=== PATIENT | female | born 1940 | race African-American/Black ===

== ENCOUNTER 2016-09-18 04:21 | Emergency (ER) | payer OTHER ==
--- NOTE | 2016-09-18 04:36 | PDOC ---
History of Present Illness - General Chief Complaint: Pain Stated Complaint: "I CANT BREATH AND MY BACK HURTS" Time Seen by Provider: 09/18/16 04:35 History Source: Patient Exam Limitations: No Limitations - History of Present Illness Initial Comments: 09/18/16 04:43 This is a 76-year-old female who comes in saying she is having difficulty breathing. Patient is a relatively poor historian however patient is noted to have 100% oxygen saturation with normal vitals here in the emergency room. Patient was comfortably resting on the stretcher lying down flat when I went into see her. She was unable to say why she felt short of breath but she just felt short of breath. She denied any palpitations or chest pain or nausea or any other associated symptoms. When I noted that she was here approximately one year ago for similar symptoms secondary to multiple deaths in her family she immediately started crying and admitted the she was feeling stressed about that as well. Patient said that her back pain is mild and chronic she did not want anything for her back pain she says it is constant and takes Tylenol for it at home which she has. Otherwise she denied any recent illnesses, cough, congestion , nausea, vomiting, diarrhea, rashes. PAST MEDICAL HISTORY: no significant history PAST SURGICAL HISTORY: no significant history FAMILY HISTORY: no pertinant history SOCIAL HISTORY: Pt lives with family and is employed. MEDICATIONS: reviewed ALLERGIES: As per nursing notes Review of Systems General: No fevers or chills, no weakness, no weight loss HEENT: No change in vision. No sore throat,. No ear pain CardioVascular: No chest pain or shortness of breath Respiratory:No cough, or wheezing. Gastrointestinal: no nausea, vomitting, diarrhea or constipation, No rectal bleeding Genitourinary: No dysuria, hematuria, or frequency Musculoskeletal: No joint or muscle pain or swelling Neurologic: No headache, vertigo, dizziness or loss of consciousness Psychiatric: nor depression Skin: No rashes or easy bruising Endocrine: no increased thirst or abnormal weight change Allergic: no skin or latex allergy All other systems reviewed and normal Exam: General: Well-nourished well-developed individual, no acute distress HEENT: Throat: Normal, tonsils normal, no erythema or exudate Neck: Supple, no meningeal signs, no lymphadenopathy Eyes::Pupils equal reactive and round, extraocular motion intact Chest: Nontender to palpation Cardiac: S1-S2 normal, regular rate and rhythm, no murmurs rubs or gallops Respiratory: Lungs clear to auscultation bilateral Abdomen: Soft, nondistended, normal bowel sounds, nontender to palpation diffusely Extremities: Warm, dry, no cyanosis, clubbing, or edema Skin: No rashes Neuro: Alert and oriented x3, nonfocal exam, grossly intact, normal gait Psych: Normal mood and affect 09/18/16 04:46 Assessment and plan: This is a 76-year-old female who comes in very anxious and stressed the anniversary of several deaths in her family. Patient stated that she felt her respiratory rate was 50 O2 sat was 98% and her cardiac and lung exam were completely normal. Patient was able to lay flat comfortably with any shortness of breath. He didn't completely lose that she has been this is chronic ongoing times many years and is worse than usual she takes Tylenol for which is helpful. Reassured patient that was that we needed to do her blood pressure was elevated but most likely stress her situation and that she should call her doctor in the morning and follow-up with her doctor. Patient discharged home with her son Past History - Past Medical History Allergies/Adverse Reactions: Allergies Allergy/AdvReac Type Severity Reaction Status Date / Time No Known Allergies Allergy Verified 07/31/15 08:49 Home Medications: Ambulatory Orders NK [No Known Home Medication] 07/31/15 Anemia: No Asthma: No Cancer: No Cardiac Disorders: No CVA: No COPD: No CHF: No Dementia: No Diabetes: No GI Disorders: No Disorders: No HTN: No Hypercholesterolemia: No Liver Disease: No Seizures: No Thyroid Disease: No - Surgical History Abdominal Surgery: No Appendectomy: No Cardiac Surgery: No Cholecystectomy: No Lung Surgery: No Neurologic Surgery: No Orthopedic Surgery: No - Immunization History Td Vaccination: Yes Immunization Up to Date: (UNSURE) - Psycho/Social/Smoking Cessation Hx Anxiety: No Suicidal Ideation: No Smoking Status: No Smoking History: Never smoked Have you smoked in the past 12 months: No Number of Cigarettes Smoked Daily: 0 Information on smoking cessation initiated: No Hx Alcohol Use: No Drug/Substance Use Hx: No Substance Use Type: Alcohol Hx Substance Use Treatment: No *Physical Exam - Vital Signs Last Vital Signs Temp Pulse Resp BP Pulse Ox 97.8 F 90 15 190/120 100 09/18/16 04:25 09/18/16 04:25 09/18/16 04:25 09/18/16 04:25 09/18/16 04:25 *DC/Admit/Observation/Transfer Diagnosis at time of Disposition: Anxiety - Discharge Dispostion Disposition: HOME Condition at time of disposition: Good Admit: No - Patient Instructions Additional Instructions: Is very important that you follow-up with your doctor and call your doctor in the morning for an appointment. Return to the emergency department immediately with ANY new, persistent or worsening symptoms. Continue any medications as previously prescribed by your physician. You should follow up with your primary doctor as soon as possible regarding today's emergency department visit. . Please make sure your doctor reviews the results of your emergency evaluation. Thank you for coming to the Emergency Department today for your care. It was a pleasure to see you today. Please note that your evaluation is INCOMPLETE until you follow-up with your doctor.
[2016-09-18 04:56] VITALS: BP 124/74; PULSE 82; TEMP 97.8; BMI 23.5
== END 2016-09-18 04:52 | disposition home or self-care (01) ==
LOC: FER 04:21
DX: F41.9 Anxiety disorder, unspecified (principal)
CPT/HCPCS: 99282-25

== ENCOUNTER 2017-05-15 23:05 | Observation (INO) | payer OTHER ==
--- NOTE | 2017-05-15 23:20 | PDOC ---
History of Present Illness - General Chief Complaint: Head/Neck problem Stated Complaint: LT SIDE OF FACE NUMB Time Seen by Provider: 05/15/17 23:10 History Source: Patient Exam Limitations: No Limitations - History of Present Illness Initial Comments: 05/15/17 23:26 This is a 76-year-old female who comes in complaining of left-sided numbness associated with some left arm and leg weakness. Symptoms persisted for about 25 minutes and have pretty much completely resolved within an hour of onset. Patient said that it was also slowed associated with some decrease in hearing for about 10 minutes. Patient is still saying that there is some very mild numbness in her hand and left arm but otherwise no complaints. Patient has a history of hypertension in the past was told to take medication for which she does not take. Her blood pressure here was 163/96. Patient otherwise denies any prior similar episodes or any significant other medical history and is otherwise healthy. Patient denies any family history of stroke or CVA. PAST MEDICAL HISTORY: no significant history PAST SURGICAL HISTORY: no significant history FAMILY HISTORY: no pertinant history SOCIAL HISTORY: Pt lives with family and is retired MEDICATIONS: reviewed ALLERGIES: As per nursing notes Review of Systems General: No fevers or chills, no weakness, no weight loss HEENT: No change in vision. No sore throat,. No ear pain CardioVascular: No chest pain or shortness of breath Respiratory:No cough, or wheezing. Gastrointestinal: no nausea, vomitting, diarrhea or constipation, No rectal bleeding Genitourinary: No dysuria, hematuria, or frequency Musculoskeletal: No joint or muscle pain or swelling Neurologic: No headache, vertigo, dizziness or loss of consciousness Psychiatric: nor depression Skin: No rashes or easy bruising Endocrine: no increased thirst or abnormal weight change Allergic: no skin or latex allergy All other systems reviewed and normal Exam: General: Well-nourished well-developed individual, no acute distress HEENT: Throat: Normal, tonsils normal, no erythema or exudate Neck: Supple, no meningeal signs, no lymphadenopathy Eyes::Pupils equal reactive and round, extraocular motion intact Chest: Nontender to palpation Cardiac: S1-S2 normal, regular rate and rhythm, no murmurs rubs or gallops Respiratory: Lungs clear to auscultation bilateral Abdomen: Soft, nondistended, normal bowel sounds, nontender to palpation diffusely Extremities: Warm, dry, no cyanosis, clubbing, or edema Skin: No rashes Neuro: Alert and oriented x3, CN II - XII intact, nonfocal exam with normal strength, normal sensation, normal reflexes, normal gait, See NIH stroke scale for more complete neuro exam Psych: Normal mood and affect Medical decision making this is a 76-year-old female who comes in complaining of some left-sided numbness and weakness that has resolved within approximately one hour of onset. Patient's NIH stroke scale is 0 at this time. Patient's symptoms are suggestive of a TIA. Will obtain labs, CBC, comp, cardiac enzymes, UA. We'll do a head CT to rule out intracranial causes. We'll obtain a chest x-ray and EKG I will reassess and evaluate results of workup 05/16/17 00:08 Patient's clinical condition remains unchanged. Patient is awake alert and without complaints. Workup is still pending 01:[address] is normal was negative for any acute pathology Patient's EKG shows normal sinus rhythm at a rate of [address]- T wave abnormalities otherwise normal EKG Patient's cbc show a normal white count with no left shift Patient's chemistries show some minor abnormalities with a mild decrease in sodium a mild elevation in glucose otherwise unremarkable patient's troponin was negative Assessment and plan: This is a 76-year-old female who comes in complaining of left-sided numbness and weakness which resolved over the course of approximately one hour. Patient had a workup that was unremarkable including a head CT. Patient remained normal neurologically here in the emergency room however she will he admitted to a observation bed for TIA workup. Discussed admission with the hospitalist Signout given to the admitting hospitalist, who accepts the patient. Discussed plan with the patient family at bedside, Patient and family aware of the plan and agree. Patient is clinically unchanged and stable. Past History - Past Medical History Allergies/Adverse Reactions: Allergies Allergy/AdvReac Type Severity Reaction Status Date / Time No Known Allergies Allergy Verified 07/31/15 08:49 Home Medications: Ambulatory Orders NK [No Known Home Medication] 07/31/15 Anemia: No Asthma: No Cancer: No Cardiac Disorders: No CVA: No COPD: No CHF: No Dementia: No Diabetes: No GI Disorders: No Disorders: No HTN: No Hypercholesterolemia: No Liver Disease: No Seizures: No Thyroid Disease: No - Surgical History Abdominal Surgery: No Appendectomy: No Cardiac Surgery: No Cholecystectomy: No Lung Surgery: No Neurologic Surgery: No Orthopedic Surgery: No - Immunization History Td Vaccination: Yes Immunization Up to Date: (UNSURE) - Suicide/Smoking/Psychosocial Hx Smoking Status: No Smoking History: Never smoked Have you smoked in the past 12 months: No Number of Cigarettes Smoked Daily: 0 Hx Alcohol Use: No Drug/Substance Use Hx: No Substance Use Type: Alcohol Hx Substance Use Treatment: No ED Treatment Course - LABORATORY CBC & Chemistry Diagram: 05/15/17 23:28 05/15/17 23:28 *DC/Admit/Observation/Transfer Diagnosis at time of Disposition: TIA (transient ischemic attack) - Discharge Dispostion Condition at time of disposition: Stable Admit: Yes - Referrals - Patient Instructions - Post Discharge Activity
--- NOTE | 2017-05-15 23:26 | PDOC ---
NIH Stroke Scale - Last Known Well Date/Time & Onset Date Last Known Well: 05/15/17 Time Last Known Well: 10:30 - Initial Evaluation Level of consciousness: Alert Ask patient the month and their age: Answers both correctly Ask patient to open & close eyes; make fist and let go: Obeys both correctly Best gaze (horizontal eye movement): Normal Visual field testing: No visual field loss Facial paresis (Show teeth/raise eyebrows/close eyes tight): Normal symmetrical movement Motor Function: Left Arm: Normal Motor Function: Right Arm: Normal (extends arm 90 (or 45) degrees for 10 seconds without drift Motor Function: Left Leg: Normal (extends leg 30 degrees for 5 seconds without drift) Motor Function: Right Leg: Normal (extends leg 30 degrees for 5 seconds without drift) Limb Ataxia: No ataxia Sensory(Use pinprick test arms,legs,trunk,face/side to side): Normal Best language (Describe picture, name items, read sentences): No Aphasia Dysarthria (read several words): Normal articulation Extinction and Inattention: No abnormality - Total Score NIH Stroke Scale Score: 0
[2017-05-15 23:35] LABS: BASO % 1.8 % (0-2.0); EOS % 2.5 % (0-4.5); HEMATOCRIT 42.3 % (32.4-45.2); HEMOGLOBIN 14.1 GM/dl (10.7-15.3); LYMPH % 38.8 % (8-40); MCH 31.1 pg (25.7-33.7); MCHC 33.4 g/dl (32.0-36.0); MEAN CELL VOLUME 93.2 fl (80-96); MEAN PLT VOLUME 9.2 fl (7.5-11.1); MONO % 11.2 % (3.8-10.2); NEUT % 45.7 % (42.8-82.8); PLATELET COUNT 196 K/MM3 (134-434); RBC 4.54 M/mm3 (3.60-5.2); RDW 12.9 % (11.6-15.6); WHITE BLOOD COUNT 4.9 K/mm3 (4.0-10.8)
[2017-05-15 23:43] LABS: INR 1.06 (0.82-1.09); PROTHROMBIN TIME (PATIENT) 11.8 SEC (10.2-13.0)
[2017-05-15 23:48] LABS: ALBUMIN 4.2 g/dl (3.5-5.0); ALK PHOS 43 U/L (32-92); ANION GAP 4 (8-16); BILIRUBIN,TOTAL 0.6 mg/dl (0.2-1.0); BLOOD UREA NITROGEN 20 mg/dl (7-18); CHLORIDE 101 mmol/L (98-107); CO2 29 mmol/L (22-28); GLUCOSE,RANDOM 113 mg/dl (74-106); POTASSIUM 3.6 mmol/L (3.5-5.1); SGOT/AST 18 U/L (10-42); SGPT/ALT 12 U/L (10-40); SODIUM 134 mmol/L (136-145); TOT PROT 7.3 g/dl (6.4-8.3)
[2017-05-15 23:55] LABS: TROPONIN I (DFP) < 0.03 ng/ml (0.03-0.50)
[2017-05-16 02:11] VITALS: BMI 23.5
[2017-05-16 07:30] LABS: BASO % 0.9 % (0-2.0); HEMATOCRIT 36.8 % (32.4-45.2); HEMOGLOBIN 12.4 GM/dl (10.7-15.3); LYMPH % 39.9 % (8-40); MCH 31.1 pg (25.7-33.7); MCHC 33.9 g/dl (32.0-36.0); MEAN CELL VOLUME 91.7 fl (80-96); MEAN PLT VOLUME 8.9 fl (7.5-11.1); MONO % 12.5 % (3.8-10.2); NEUT % 43.7 % (42.8-82.8); PLATELET COUNT 175 K/MM3 (134-434); RBC 4.01 M/mm3 (3.60-5.2); RDW 12.6 % (11.6-15.6); WHITE BLOOD COUNT 3.1 K/mm3 (4.0-10.8)
[2017-05-16 08:32] LABS: ANION GAP 1 (8-16); BLOOD UREA NITROGEN 15 mg/dl (7-18); CALCIUM 9.3 mg/dl (8.4-10.2); CHLORIDE 107 mmol/L (98-107); CO2 28 mmol/L (22-28); CREATININE 0.7 mg/dl (0.6-1.3); GLUCOSE,RANDOM 92 mg/dl (74-106); MAGNESIUM 2.1 mg/dL (1.8-2.4); PHOSPHOROUS 3.4 mg/dl (2.5-4.6); POTASSIUM 3.8 mmol/L (3.5-5.1); SODIUM 136 mmol/L (136-145)
[2017-05-16 08:35] LABS: CHOLESTEROL 197 mg/dl; HDL CHOLESTEROL 71 mg/dl (29-89)
[2017-05-16 08:40] LABS: LDL CHOLESTEROL (ONLY DFH) 122 mg/dl; TRIGLYCERIDES 21 mg/dl (35-160)
[2017-05-16 09:44] LABS: URINE APPEARANCE Clear; URINE BILIRUBIN Negative (NEGATIVE); URINE BLOOD Negative (NEGATIVE); URINE COLOR YELLOW; URINE GLUCOSE (UA) Negative (NEGATIVE); URINE KETONE Negative (NEGATIVE); URINE NITRITE Negative (NEGATIVE); URINE PROTEIN Negative (NEGATIVE); URINE UROBILINOGEN 0.2 (0.2-1.0)
--- NOTE | 2017-05-16 10:11 | HP ---
CHIEF COMPLAINT: Numbness PCP: "They gave me one, but I haven't seen her yet" HISTORY OF PRESENT ILLNESS: This is a 76-year-old female who was diagnosed with HTN but did not tolerate medication, no other PMH, who presented to the ED last night following an episode of left-sided facial and arm numbness and left leg weakness. Symptoms started while the patient was watching TV at about 10pm. She states she has had similar, less severe episodes in the past. Symptoms persisted for about 10 minutes and were completely resolved at the time of ED presentation. ER course was notable for: (1) CTH: no acute intracranial process (2) BP 163/96 per ED physician documentation (3) EK and some nonspecific ST-T wave abnormalities (4) Troponin <0.03 Recent Travel: None PAST MEDICAL HISTORY: HTN, unmedicated PAST SURGICAL HISTORY: None Social History: Worked as clinic office assistant for 44 years. . Lives in private house, son has apartment downstairs. Smoking: Never smoker. Alcohol: Occasional, has been drinking honey-whiskey for cold symptoms. Drugs: None Family History: No Allergies No Known Allergies Allergy (Verified 07/31/15 08:49) HOME MEDICATIONS: Home Medications Medication Instructions Recorded NK [No Known Home Medication] 07/31/15 REVIEW OF SYSTEMS CONSTITUTIONAL: Absent: fever, chills, diaphoresis, generalized weakness, malaise, loss of appetite, weight change HEENT: Absent: rhinorrhea, nasal congestion, throat pain, throat swelling, difficulty swallowing, mouth swelling, ear pain, eye pain, visual changes CARDIOVASCULAR: Absent: chest pain, syncope, palpitations, irregular heart rate, lightheadedness , peripheral edema RESPIRATORY: Absent: cough, shortness of breath, dyspnea with exertion, orthopnea, wheezing, stridor, hemoptysis GASTROINTESTINAL: Absent: abdominal pain, abdominal distension, nausea, vomiting, diarrhea, constipation, melena, hematochezia GENITOURINARY: Absent: dysuria, frequency, urgency, hesitancy, hematuria, flank pain, genital pain MUSCULOSKELETAL: Absent: myalgia, arthralgia, joint swelling, back pain, neck pain SKIN: Absent: rash, itching, pallor HEMATOLOGIC/IMMUNOLOGIC: Absent: easy bleeding, easy bruising, lymphadenopathy, frequent infections ENDOCRINE: Absent: unexplained weight gain, unexplained weight loss, heat intolerance, cold intolerance NEUROLOGIC: Right-sided facial and arm numbness, right leg weakness, lightheadedness all now resolved. Absent: headache, focal weakness or paresthesias, dizziness, unsteady gait, seizure, mental status changes, bladder or bowel incontinence PSYCHIATRIC: Absent: anxiety, depression, suicidal or homicidal ideation, hallucinations. PHYSICAL EXAMINATION Vital Signs - 24 hr 05/15/17 05/16/17 05/16/17 23:08 00:24 04:24 Temperature 98.1 F 97.5 F L Pulse Rate 77 82 Respiratory 16 16 18 Rate Blood Pressure 136/93 98/58 O2 Sat by Pulse 99 Oximetry (%) 05/16/17 05/16/17 07:44 07:52 Temperature 97.8 F Pulse Rate 76 Respiratory 20 Rate Blood Pressure 134/76 O2 Sat by Pulse 100 Oximetry (%) GENERAL: Awake, alert, and fully oriented, in no acute distress. HEAD: Normal with no signs of trauma. EYES: Pupils equal, round and reactive to light, extraocular movements intact, sclera anicteric, conjunctiva clear. No lid lag. EARS, NOSE, THROAT: Ears normal, nares patent, oropharynx clear without exudates. Moist mucous membranes. NECK: Normal range of motion, supple without lymphadenopathy, JVD, or masses. LUNGS: Breath sounds equal, clear to auscultation bilaterally. No wheezes, and no crackles. No accessory muscle use. HEART: Regular rate and rhythm, normal S1 and S2 without murmur, rub or gallop. ABDOMEN: Soft, nontender, not distended, normoactive bowel sounds, no guarding, no rebound, no masses. No hepatomegaly or splenomegaly. MUSCULOSKELETAL: Normal range of motion at all joints. No bony deformities or tenderness. No CVA tenderness. UPPER EXTREMITIES: 2+ pulses, warm, well-perfused. No cyanosis. No clubbing. No peripheral edema. LOWER EXTREMITIES: 2+ pulses, warm, well-perfused. No calf tenderness. No peripheral edema. NEUROLOGICAL: Cranial nerves II-XII intact. Normal speech. Normal gait. PSYCHIATRIC: Cooperative. Good eye contact. Appropriate mood and affect. SKIN: Warm, dry, normal turgor, no rashes or lesions noted, normal capillary refill. Laboratory Results - last 24 hr 05/15/17 05/15/17 05/15/17 23:28 23:28 23:28 WBC 4.9 D RBC 4.54 Hgb 14.1 Hct 42.3 MCV 93.2 MCH 31.1 MCHC 33.4 RDW 12.9 Plt Count 196 MPV 9.2 Neutrophils % 45.7 Lymphocytes % 38.8 Monocytes % 11.2 H Eosinophils % 2.5 Basophils % 1.8 PT with INR 11.8 INR 1.06 Sodium 134 L Potassium 3.6 Chloride 101 Carbon Dioxide 29 H Anion Gap 4 L BUN 20 H D Creatinine 1.0 D Creat Clearance w eGFR 53.91 Random Glucose 113 H D Hemoglobin A1c % Calcium 9.0 Phosphorus Magnesium Total Bilirubin 0.6 D AST 18 ALT 12 D Alkaline Phosphatase 43 Creatine Kinase Creatine Kinase Index CK-MB (CK-2) Troponin I Total Protein 7.3 Albumin 4.2 Triglycerides Cholesterol Total LDL Cholesterol HDL Cholesterol Urine Color Urine Appearance Urine pH Ur Specific Villalba Urine Protein Urine Glucose (UA) Urine Ketones Urine Blood Urine Nitrite Urine Bilirubin Urine Urobilinogen Ur Leukocyte Esterase 05/15/17 05/16/17 05/16/17 23:28 07:20 07:20 WBC 3.1 L D RBC 4.01 Hgb 12.4 D Hct 36.8 MCV 91.7 MCH 31.1 MCHC 33.9 RDW 12.6 Plt Count 175 MPV 8.9 Neutrophils % 43.7 Lymphocytes % 39.9 Monocytes % 12.5 H Eosinophils % 3.0 Basophils % 0.9 PT with INR INR Sodium 136 Potassium 3.8 Chloride 107 Carbon Dioxide 28 Anion Gap 1 L BUN 15 D Creatinine 0.7 D Creat Clearance w eGFR Random Glucose 92 Hemoglobin A1c % Calcium 9.3 Phosphorus 3.4 Magnesium 2.1 Total Bilirubin AST ALT Alkaline Phosphatase Creatine Kinase 251 H Creatine Kinase Index 1.2 CK-MB (CK-2) 3.2 Troponin I < 0.03 L Total Protein Albumin Triglycerides Cholesterol Total LDL Cholesterol HDL Cholesterol Urine Color Urine Appearance Urine pH Ur Specific Vill[place] Urine Protein Urine Glucose (UA) Urine Ketones Urine Blood Urine Nitrite Urine Bilirubin Urine Urobilinogen Ur Leukocyte Esterase 05/16/17 05/16/17 05/16/17 07:20 07:20 08:18 WBC RBC Hgb Hct MCV MCH MCHC RDW Plt Count MPV Neutrophils % Lymphocytes % Monocytes % Eosinophils % Basophils % PT with INR INR Sodium Potassium Chloride Carbon Dioxide Anion Gap BUN Creatinine Creat Clearance w eGFR Random Glucose Hemoglobin A1c % 5.5 Calcium Phosphorus Magnesium Total Bilirubin AST ALT Alkaline Phosphatase Creatine Kinase Creatine Kinase Index CK-MB (CK-2) Troponin I Total Protein Albumin Triglycerides 21 L D Cholesterol 197 Total LDL Cholesterol 122 HDL Cholesterol 71 Urine Color Yellow Urine Appearance Clear Urine pH 7.0 Ur Specific Vill[place]ba 1.015 Urine Protein Negative Urine Glucose (UA) Negative Urine Ketones Negative Urine Blood Negative Urine Nitrite Negative Urine Bilirubin Negative Urine Urobilinogen 0.2 Ur Leukocyte Esterase Negative ASSESSMENT/PLAN: 76 year old female with TIA symptoms. 1. Neuro: TIA symptoms -Monitor on telemetry -Serial troponins to DAVID -CT brain: no acute process -Start ASA, Lipitor -Echocardiogram, carotid doppler studies -MRI brain -Neurology consultation pending 2. HTN -Currently at goal -Monitor 3. F/E/N -No dysphagia -Fat/cholesterol-controlled diet 4. Ppx -Lovenox DISPO: Observation.
[2017-05-16] MEDS: ASPIRIN 81 MG CHEWABLE TABLETS PO SCH (12:00)
--- NOTE | 2017-05-16 15:36 | CONSULT ---
Consult - text type - Consultation Consultation Note: Neurology History of Present Illness This is a 76-year-old female presented complaining of left-sided numbness associated with some left arm and leg weakness. Symptoms persisted for about 25 minutes and have pretty much completely resolved within an hour of onset. Patient said that it was also slowed associated with some decrease in hearing for about 10 minutes. Patient has a history of hypertension in the past was told to take medication for which she does not take. She was taking ASA in the past and asked her to restart as she stopped taking it. Also ordered for Statin for CVA prevention. MRI brain ordered and awaiting completion. PAST MEDICAL HISTORY: no significant history PAST SURGICAL HISTORY: no significant history FAMILY HISTORY: no pertinant history SOCIAL HISTORY: Pt lives with family and is retired MEDICATIONS: reviewed ALLERGIES: As per nursing notes Review of Systems General: No fevers or chills, no weakness, no weight loss HEENT: No change in vision. No sore throat,. No ear pain CardioVascular: No chest pain or shortness of breath Respiratory:No cough, or wheezing. Gastrointestinal: no nausea, vomitting, diarrhea or constipation, No rectal bleeding Genitourinary: No dysuria, hematuria, or frequency Musculoskeletal: No joint or muscle pain or swelling Neurologic: No headache, vertigo, dizziness or loss of consciousness Psychiatric: nor depression Skin: No rashes or easy bruising Endocrine: no increased thirst or abnormal weight change Allergic: no skin or latex allergy All other systems reviewed and normal Past History - Past Medical History Allergies/Adverse Reactions: Allergies Allergy/AdvReac Type Severity Reaction Status Date / Time No Known Allergies Allergy Verified 07/31/15 08:49 Active Medications Aspirin (Asa -) 81 mg PO DAILY [facility] Last Admin: 05/16/17 12:00 Dose: 81 mg Atorvastatin Calcium (Lipitor -) 40 mg PO [facility] Enoxaparin Sodium (Lovenox -) 40 mg SQ DAILY [facility] Anemia: No Asthma: No Cancer: No Cardiac Disorders: No CVA: No COPD: No CHF: No Dementia: No Diabetes: No GI Disorders: No Disorders: No HTN: No Hypercholesterolemia: No Liver Disease: No Seizures: No Thyroid Disease: No - Surgical History Abdominal Surgery: No Appendectomy: No Cardiac Surgery: No Cholecystectomy: No Lung Surgery: No Neurologic Surgery: No Orthopedic Surgery: No - Immunization History Td Vaccination: Yes Immunization Up to Date: (UNSURE) - Suicide/Smoking/Psychosocial Hx Smoking Status: No Smoking History: Never smoked Have you smoked in the past 12 months: No Number of Cigarettes Smoked Daily: 0 Hx Alcohol Use: No Drug/Substance Use Hx: No Substance Use Type: Alcohol Hx Substance Use Treatment: No Vital Signs Temperature 98.3 F 05/16/17 14:12 Pulse Rate 72 05/16/17 14:12 Respiratory Rate 20 05/16/17 14:12 Blood Pressure 98/64 05/16/17 14:12 O2 Sat by Pulse Oximetry (%) 99 05/16/17 14:12 EXAM General: Well-nourished well-developed individual, no acute distress HEENT: Throat: Normal, tonsils normal, no erythema or exudate Neck: Supple, no meningeal signs, no lymphadenopathy Eyes::Pupils equal reactive and round, extraocular motion intact Chest: Nontender to palpation Cardiac: S1-S2 normal, regular rate and rhythm, no murmurs rubs or gallops Respiratory: Lungs clear to auscultation bilateral Abdomen: Soft, nondistended, normal bowel sounds, nontender to palpation diffusely Extremities: Warm, dry, no cyanosis, clubbing, or edema Skin: No rashes Neuro: Alert and oriented x3, CN II - XII intact, nonfocal exam with normal strength, normal sensation, normal reflexes, normal gait, Psych: Normal mood and affect CBCD WBC 3.1 K/mm3 (4.0-10.8) L D 05/16/17 07:20 RBC 4.01 M/mm3 (3.60-5.2) 05/16/17 07:20 Hgb 12.4 GM/dl (10.7-15.3) D 05/16/17 07:20 Hct 36.8 % (32.4-45.2) 05/16/17 07:20 MCV 91.7 fl (80-96) 05/16/17 07:20 MCHC 33.9 g/dl (32.0-36.0) 05/16/17 07:20 RDW 12.6 % (11.6-15.6) 05/16/17 07:20 Plt Count 175 K/MM3 (134-434) 05/16/17 07:20 MPV 8.9 fl (7.5-11.1) 05/16/17 07:20 CMP Sodium 136 mmol/L (136-145) 05/16/17 07:20 Potassium 3.8 mmol/L (3.5-5.1) 05/16/17 07:20 Chloride 107 mmol/L (98-107) 05/16/17 07:20 Carbon Dioxide 28 mmol/L (22-28) 05/16/17 07:20 Anion Gap 1 (8-16) L 05/16/17 07:20 BUN 15 mg/dl (7-18) D 05/16/17 07:20 Creatinine 0.7 mg/dl (0.6-1.3) D 05/16/17 07:20 Creat Clearance w eGFR 53.91 (>60) 05/15/17 23:28 Calcium 9.3 mg/dl (8.4-10.2) 05/16/17 07:20 Total Bilirubin 0.6 mg/dl (0.2-1.0) D 05/15/17 23:28 AST 18 U/L (10-42) 05/15/17 23:28 ALT 12 U/L (10-40) D 05/15/17 23:28 Alkaline Phosphatase 43 U/L (32-92) 05/15/17 23:28 Total Protein 7.3 g/dl (6.4-8.3) 05/15/17 23:28 Albumin 4.2 g/dl (3.5-5.0) 05/15/17 23:28 CT head reviewed MRI brain ordered Plan: 76-year-old female presented complaining of left-sided numbness associated with some left arm and leg weakness. Symptoms persisted for about 25 minutes and have pretty much completely resolved within an hour of onset. Patient said that it was also slowed associated with some decrease in hearing for about 10 minutes. Patient has a history of hypertension in the past was told to take medication for which she does not take. She was taking ASA in the past and asked her to restart as she stopped taking it. Also ordered for Statin for CVA prevention. MRI brain ordered and awaiting completion. Possibly TIA. Continue monitor bp, maintain normotensive range. Otherwise neurologically stable.
[2017-05-16] MEDS ORDERED: ATORVASTATIN CA 40 MG TABLET (FP) PO SCH (22:00)
[2017-05-16 22:33] VITALS: TEMP 97.7
[2017-05-17 06:23] VITALS: BP 110/79; PULSE 69
--- NOTE | 2017-05-17 09:09 | DS ---
Physical Exam: SUBJECTIVE: Patient seen and examined. No complaints. No lightheadedness, numbness, or weakness. OBJECTIVE: Vital Signs Period Temp Pulse Resp BP Sys/Conde Pulse Ox Last 24 Hr 97.7 F-98.3 F 68-72 18-20 98-151/64-89 99-100 PHYSICAL EXAM GENERAL: The patient is awake, alert, and fully oriented, in no acute distress. HEAD: Normal with no signs of trauma. EYES: PERRL, extraocular movements intact, sclera anicteric, conjunctiva clear. ENT: Ears normal, nares patent, oropharynx clear without exudates, moist mucous membranes. NECK: Trachea midline, full range of motion, supple. LUNGS: Breath sounds equal, clear to auscultation bilaterally, no wheezes, no crackles, no accessory muscle use. HEART: Regular rate and rhythm, S1, S2 without murmur, rub or gallop. ABDOMEN: Soft, nontender, nondistended, normoactive bowel sounds, no guarding, no rebound, no hepatosplenomegaly, no masses. EXTREMITIES: 2+ pulses, warm, well-perfused, no edema. NEUROLOGICAL: Cranial nerves II through XII grossly intact. Normal speech, gait steady. PSYCH: Normal mood, normal affect. SKIN: Warm, dry, normal turgor, no rashes or lesions noted. LABS Laboratory Results - last 24 hr 05/16/17 05/16/17 05/16/17 07:20 08:18 12:20 Hemoglobin A1c % 5.5 Troponin I < 0.03 L Urine Color Yellow Urine Appearance Clear Urine pH 7.0 Ur Specific Cochrane 1.015 Urine Protein Negative Urine Glucose (UA) Negative Urine Ketones Negative Urine Blood Negative Urine Nitrite Negative Urine Bilirubin Negative Urine Urobilinogen 0.2 Ur Leukocyte Esterase Negative 05/16/17 18:00 Hemoglobin A1c % Troponin I < 0.03 L Urine Color Urine Appearance Urine pH Ur Specific Cochrane Urine Protein Urine Glucose (UA) Urine Ketones Urine Blood Urine Nitrite Urine Bilirubin Urine Urobilinogen Ur Leukocyte Esterase HOSPITAL COURSE: This is a 76-year-old female who was diagnosed with HTN but did not tolerate medication, no other PMH, who presented to the ED on 05/15 following an episode of left-sided facial and arm numbness and left leg weakness. Symptoms started while the patient was watching TV at about 10pm. She states she has had similar, less severe episodes in the past. Symptoms persisted for about 10 minutes and were completely resolved at the time of ED presentation. ER and hospital course were notable for: (1) CTH: no acute intracranial process (2) BP 163/96 on presentation per ED physician documentation, but remained in an acceptable range after that (3) EK and some nonspecific ST-T wave abnormalities (4) Troponin <0.03 x 3 (5) Seen by neurology with recommendations for ASA, Lipitor, and brain MRI (6) MRI brain: no evidence of acute infarct, chronic microvascular ischemic changes Symptoms did not recur. The patient is feeling well and is eager to go home. She agrees to follow up with her PCP as well as with cardiology for an outpatient echocardiogram. She agrees to continue ASA but refuses to continue Lipitor, even after discussing risks/benefits at length. Return precautions reviewed. Date of Admission:05/16/17 Date of Discharge: 05/17/17 Minutes to complete discharge: 45 Discharge Summary Reason For Visit: TIA Current Active Problems TIA (transient ischemic attack) (Acute) Condition: Stable - Instructions Diet, Activity, Other Instructions: -Take Aspirin 81mg daily as discussed -Follow up with Dr. Chambers, as well as a typer. You will need an echocardiogram (ultrasound of the heart) to complete your evaluation. -Return here for repeated episodes of numbness/weakness, severe headaches, lightheadedness, change in vision or speech, or any other concerning symptoms. Referrals: Girish Berumen MD [Staff Physician] - 1 Week (For echocardiogram) Disposition: HOME - Home Medications Comprehensive Discharge Medication List: Ambulatory Orders NK [No Known Home Medication] 07/31/15 This patient is new to me today: No Emergency Visit: Yes ED Registration Date: 05/16/17 Care time: The patient presented to the Emergency Department on the above date and was hospitalized for further evaluation of their emergent condition. Critical Care patient: No - Discharge Referral Referred to [facility] Med [facility].C.: No
[2017-05-17] MEDS: ASPIRIN 81 MG CHEWABLE TABLETS PO SCH (10:00)
[2017-05-17] MEDS ORDERED: ENOXAPARIN NA (PORCINE) 40 MG/0.4 ML DISP.SYRIN SQ SCH (10:00)
--- NOTE | 2017-05-18 16:57 | EKG ---
Test Reason : Blood Pressure : / mmHG Vent. Rate : 072 BPM Atrial Rate : 072 BPM P-R Int : 134 ms QRS Dur : 072 ms QT Int : 404 ms P-R-T Axes : 063 -03 042 degrees QTc Int : 442 ms NORMAL SINUS RHYTHM NO PREVIOUS ECGS AVAILABLE Confirmed by KULDIP BREWSTER MD ([id number]) on 05/18/2017 4:57:28 PM Referred By: MD VELIZ Confirmed By:KULDIP BREWSTER MD
== END 2017-05-17 11:50 | disposition home or self-care (01) ==
LOC: FER 23:05 → FM/S 05-16 00:54
PROVIDERS: ADMIT Internal Medicine; ATTEND Registered Nurse Emergency
DX: G45.9 Transient cerebral ischemic attack, unspecified (principal)
CPT/HCPCS: 36415; 70450-TC; 70551-TC; 71045-TC; 80048; 80053; 80061; 81003; 82550; 82553; 83036; 83735; 84100; 84484; 85025; 85610; 93005; 93880-TC; 99283-25; G0378

== ENCOUNTER 2017-09-23 21:22 | Emergency (ER) | payer OTHER ==
[2017-09-23 21:34] VITALS: BP 154/90; PULSE 64; TEMP 97.9; BMI 17.7
--- NOTE | 2017-09-23 21:35 | PDOC ---
History of Present Illness - General History Source: Patient Exam Limitations: No Limitations - History of Present Illness Initial Comments: 09/23/17 21:46 HPI: The patient is a 77 year old female, with no significant past medical history, who presents to the emergency department with, one week of worsening blurred vision of the left eye. As per patient the symptoms has persisted for a week and feels as if something is in her eye. She reports associated throbbing to the left side of her face. She has been using dry eye drops, without relief. Today she reports the blurred vision has been at its worst. She describes her symptoms as it going dark then she can see an image, however, it is blurry in nature. The patient can see when images are close, however, they become increasingly blurry when farther away. She has not spoken to her PCP about her symptoms. 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 She denies any discharge from the eye. She denies recent fevers, chills, headache or dizziness. She denies recent nausea, vomit, diarrhea or constipation. She denies recent dysuria, frequency, urgency or hematuria. She denies recent chest pain or shortness of breath. PAST MEDICAL HISTORY: no significant history PAST SURGICAL HISTORY: no significant history FAMILY HISTORY: no pertinent history SOCIAL HISTORY: Pt lives with family. MEDICATIONS: reviewed ALLERGIES: As per nursing notes ROS: General: No fevers or chills, no weakness, no weight loss +HEENT: Blurred vision in the left eye. No sore throat,. No ear pain CardioVascular: No chest pain or shortness of breath Respiratory:No cough, or wheezing. Gastrointestinal: no nausea, vomiting, diarrhea or constipation, No rectal bleeding Genitourinary: No dysuria, hematuria, or frequency Musculoskeletal: No joint or muscle pain or swelling Neurologic: No headache, vertigo, dizziness or loss of consciousness Psychiatric: nor depression Skin: No rashes or easy bruising Endocrine: no increased thirst or abnormal weight change Allergic: no skin or latex allergy All other systems reviewed and normal Physical Exam: GENERAL: The patient is awake, alert, and fully oriented, in no acute distress. HEAD: Normal with no signs of trauma. EYES: Both: Visual acuity: 40/20. Right eye: Visual acuity: 40/20. Pupils equal , round and reactive to light, extraocular movements intact, sclera anicteric, conjunctiva clear. Left eye: Pupil midline and sluggish. Opacification of pupil. Unable to visualize interior structure of eye secondary to opacification. Visual acuity: Unable to see. EXTREMITIES: Normal range of motion, no edema. NEUROLOGICAL: Normal speech, normal gait. PSYCH: Normal mood, normal affect. SKIN: Warm, Dry, normal turgor, no rashes or lesions noted. <Harley Ervin - Last Filed: 09/23/17 22:07> - General History Source: Patient Exam Limitations: No Limitations - History of Present Illness Initial Comments: A portion of this note was documented by scribe services under my direction. I have reviewed the details of the note, within reason, and agree with the documentation. The case summary and management plan written by me. Assessment and plan: This is a 77-year-old female who comes in complaining of decreased vision in her left eye. Patient's visual acuity was 40/20 in the right eye and could not see the big E with the left eye. On my exam patient's pupil was completely opacified. Patient was told that she had cataracts approximately 2 years ago and in further questioning her it does appear that she has had decreased vision for some time now but it seemed to have gotten worse over the last week or so. I discussed with the patient that this is most likely secondary to a chronic problem such as her cataracts and that she needs to follow-up with her eye doctor I recommended she call her eye doctor in the morning for an appointment and follow-up with her eye doctor. Patient discharged home with her son <Robert Kim Vilma - Last Filed: 09/23/17 22:15> - General Chief Complaint: Eye Problem Stated Complaint: L EYE BLURRY Time Seen by Provider: 09/23/17 21:34 Past History <Harley Ervin - Last Filed: 09/23/17 22:07> - Past Medical History Anemia: No Asthma: No Cancer: No Cardiac Disorders: No CVA: No COPD: No CHF: No Dementia: No Diabetes: No GI Disorders: No Disorders: No HTN: No Hypercholesterolemia: No Liver Disease: No Seizures: No Thyroid Disease: No - Surgical History Abdominal Surgery: No Appendectomy: No Cardiac Surgery: No Cholecystectomy: No Lung Surgery: No Neurologic Surgery: No Orthopedic Surgery: No - Immunization History Td Vaccination: Yes Immunization Up to Date: (UNSURE) - Suicide/Smoking/Psychosocial Hx Smoking Status: No Smoking History: Never smoked Have you smoked in the past 12 months: No Number of Cigarettes Smoked Daily: 0 Information on smoking cessation initiated: No Hx Alcohol Use: No Drug/Substance Use Hx: No Substance Use Type: Alcohol Hx Substance Use Treatment: No <Robert Kim I - Last Filed: 09/23/17 22:15> - Past Medical History Allergies/Adverse Reactions: Allergies Allergy/AdvReac Type Severity Reaction Status Date / Time No Known Allergies Allergy Verified 07/31/15 08:49 Home Medications: Ambulatory Orders NK [No Known Home Medication] 07/31/15 *Physical Exam - Vital Signs Last Vital Signs Temp Pulse Resp BP Pulse Ox 97.9 F 64 14 154/90 99 09/23/17 21:27 09/23/17 21:27 09/23/17 21:27 09/23/17 21:27 09/23/17 21:27 <Harley Ervin - Last Filed: 09/23/17 22:07> - Vital Signs Last Vital Signs Temp Pulse Resp BP Pulse Ox 97.9 F 64 14 154/90 99 09/23/17 21:27 09/23/17 21:27 09/23/17 21:27 09/23/17 21:27 09/23/17 21:27 <oRbert Kim I - Last Filed: 09/23/17 22:15> *DC/Admit/Observation/Transfer - Attestations Scribe Attestion: 09/23/17 21:46 Documentation prepared by Harley Ervin, acting as director medical science for Robert Kim MD. <Harley Ervin - Last Filed: 09/23/17 22:07> - Discharge Dispostion Decision to Admit order: No <Robert Kim I - Last Filed: 09/23/17 22:15> Diagnosis at time of Disposition: Blurred vision, left eye - Discharge Dispostion Disposition: HOME Condition at time of disposition: Good - Referrals Referrals: Drea Chambers MD [Primary Care Provider] - - Patient Instructions Additional Instructions: call your eye doctor in the morning and get an appointment to follow-up as soon as possible. Return to the emergency department immediately with ANY new, persistent or worsening symptoms. Continue any medications as previously prescribed by your physician. You should follow up with your primary doctor as soon as possible regarding today's emergency department visit. . Please make sure your doctor reviews the results of your emergency evaluation. Thank you for coming to the Emergency Department today for your care. It was a pleasure to see you today. Please note that your evaluation is INCOMPLETE until you follow-up with your doctor. - Post Discharge Activity
== END 2017-09-23 22:19 | disposition home or self-care (01) ==
LOC: FER 21:22
DX: H53.8 Other visual disturbances (principal)
CPT/HCPCS: 99283-25

== ENCOUNTER 2018-03-28 17:20 | Emergency (ER) | payer OTHER ==
[2018-03-28 17:38] VITALS: BP 153/93; PULSE 87; TEMP 98.4; BMI 24.7
--- NOTE | 2018-03-28 17:42 | PDOC ---
History of Present Illness - General Chief Complaint: Respiratory Stated Complaint: COUGH Time Seen by Provider: 03/28/18 17:25 History Source: Patient Exam Limitations: No Limitations - History of Present Illness Initial Comments: 03/28/18 17:36 77 y/o female with cough for 1 1/2 weeks. No SOB or chest pain. Had cataract surgery 1 month ago. No fever or chills. No N/V/d/c. Feels like phlegm in caught in throat. Using OTC medication with little relief. Severity: reports: mild Past History - Past Medical History Allergies/Adverse Reactions: Allergies Allergy/AdvReac Type Severity Reaction Status Date / Time No Known Allergies Allergy Verified 03/28/18 17:31 Home Medications: Ambulatory Orders Azithromycin [Zithromax -] 250 mg PO UTDICT #6 tab 03/28/18 Benzonatate [Tessalon Pearls -] 100 mg PO TID #21 capsule 03/28/18 Ofloxacin 0.3% Ophth Soln [Ocuflox 0.3% Eye Drops -] 1 drop OP Q4H 03/28/18 Prednisolone 1% Ophthalmic [Pred Forte 1% -] 1 ml OP ASDIR 03/28/18 Anemia: No Asthma: No Cancer: No Cardiac Disorders: No CVA: No COPD: No CHF: No Dementia: No Diabetes: No GI Disorders: No Disorders: No HTN: No Hypercholesterolemia: No Liver Disease: No Seizures: No Thyroid Disease: No - Surgical History Abdominal Surgery: No Appendectomy: No Cardiac Surgery: No Cholecystectomy: No Lung Surgery: No Neurologic Surgery: No Orthopedic Surgery: No - Immunization History Td Vaccination: Yes Immunization Up to Date: (UNSURE) - Suicide/Smoking/Psychosocial Hx Smoking Status: No Smoking History: Never smoked Have you smoked in the past 12 months: No Number of Cigarettes Smoked Daily: 0 Hx Alcohol Use: No Drug/Substance Use Hx: No Substance Use Type: Alcohol Hx Substance Use Treatment: No Review of Systems - Review of Systems Able to Perform ROS?: Yes Is the patient limited Citizen [place] proficient: No Constitutional: No: Chills, Fever Respiratory: Yes: Cough. No: Shortness of Breath, Wheezing Cardiac (ROS): No: Chest Pain, Edema ABD/GI: No: Nausea, Vomiting All Other Systems: Reviewed and Negative *Physical Exam - Physical Exam General Appearance: Yes: Nourished, Appropriately Dressed. No: Apparent Distress HEENT: positive: EOMI, XAVIER, Normal ENT Inspection, Normal Voice, Symmetrical, Pharynx Normal Neck: positive: Trachea midline, Normal Thyroid, Supple. negative: Tender, Rigid, Carotid bruit Respiratory/Chest: positive: Lungs Clear, Normal Breath Sounds. negative: Chest Tender, Respiratory Distress Cardiovascular: positive: Regular Rhythm, Regular Rate, S1, S2, Other (no calf tenderness b/l). negative: Edema, JVD, Murmur Vascular Pulses: Femoral (R): 4+, Femoral (L): 4+, Carotid (R): 4+, Carotid (L) : 4+, Dorsalis-Pedis (R): 4+, Doralis-Pedis (L): 4+ Gastrointestinal/Abdominal: positive: Normal Bowel Sounds, Flat, Soft. negative : Tender, Organomegaly, Pulsatile Mass Lymphatic: negative: Adenopathy, Tenderness, Other Musculoskeletal: positive: Normal Inspection, CVA Tenderness Extremity: positive: Normal Capillary Refill, Normal Inspection, Normal Range of Motion. negative: Tender Integumentary: positive: Normal Color, Dry, Warm Neurologic: positive: records tech II-XII NML intact, Fully Oriented, Alert, Normal Mood/ Affect, Normal Response, Motor Strength 5/5 Progress Note - Progress Note Progress Note: Pt appears to have a URI, I do not see any risks for DVT/PE Will place on Z-pack and Tessalon Perles If worsen return to ER Pt is in agreement with plan *DC/Admit/Observation/Transfer Diagnosis at time of Disposition: URI (upper respiratory infection) Qualifiers: URI type: unspecified URI Qualified Code(s): J06.9 - Acute upper respiratory infection, unspecified - Discharge Dispostion Disposition: HOME Condition at time of disposition: Stable Decision to Admit order: No - Referrals - Patient Instructions Printed Discharge Instructions: DI for Viral Upper Respiratory Infection -- Adult Additional Instructions: Fluids, rest, Tylenol Z-pack as directed Tessalon Perle 100mg 1 tab 3x/day as needed If worsen return to ER - Post Discharge Activity
== END 2018-03-28 17:56 | disposition home or self-care (01) ==
LOC: FER 17:20
DX: J06.9 Acute upper respiratory infection, unspecified (principal)
CPT/HCPCS: 99282-25

== ENCOUNTER 2018-10-29 23:01 | Emergency (ER) | payer OTHER ==
[2018-10-29 23:11] VITALS: BP 139/90; PULSE 66; TEMP 98.3; BMI 24.5
[2018-10-29] MEDS ORDERED: ACETAMINOPHEN 500 MG TABLET (FP) PO ONE (23:21)
[2018-10-29] MEDS ORDERED: ACETAMINOPHEN 500 MG TABLET (FP) ONE (23:23)
== END 2018-10-29 23:29 | disposition home or self-care (01) ==
LOC: FER 23:01
DX: M79.642 Pain in left hand (principal); M54.9 Dorsalgia, unspecified
CPT/HCPCS: 99282-25

== ENCOUNTER 2018-12-02 20:54 | Emergency (ER) | payer OTHER | END 2018-12-02 22:19 | disposition home or self-care (01) | LOC: FER 20:54 ==